=== PATIENT | female | born 1995 | race American Indian/Alaskan Native ===

== ENCOUNTER 2018-09-04 12:16 | Emergency (ER) | payer SELFPAY ==
[2018-09-04 12:16] VITALS: BMI 31.4
[2018-09-04 12:24] VITALS: TEMP 98.5
[2018-09-04] MEDS ORDERED: Sodium Chloride 0.9% 1,000 ML IV STA (13:17)
[2018-09-04] MEDS ORDERED: Sodium Chloride 0.9% 1,000 ML IV ONE (13:19)
[2018-09-04] MEDS ORDERED: Sodium Chloride 0.9% 1,000 ML ONE (13:33)
--- NOTE | 2018-09-04 14:00 | C.PDOC ---
History Of Present Illness 23 y/o female presents to the ED complaining of bilateral temporal headache for the last 2 days. Associated with photophobia, phonophobia, and decreased PO and nausea. Otherwise she denies any vomiting, fevers, chills, neck pain or stiffness. Patient admits to prior hx of migraines but cannot recall what she was treated with in the past. Time Seen by Provider: 09/04/18 12:56 Chief Complaint (Nursing): Headache History Per: Patient History/Exam Limitations: no limitations Onset/Duration Of Symptoms: Days (x 2) Current Symptoms Are (Timing): Still Present Associated Symptoms: Photophobia Past Medical History Reviewed: Historical Data, Nursing Documentation, Vital Signs Vital Signs: Last Vital Signs Temp 98.5 F 09/04/18 12:24 Pulse 83 09/04/18 12:24 Resp 20 09/04/18 12:24 BP 143/86 09/04/18 12:24 Pulse Ox 98 09/04/18 12:24 - Medical History PMH: HTN, Migraine Denies: Depression, Diabetes - [facility] EXTRACTION OF POC, LOW CERVICAL, OPEN APPROACH (04/12/17) Family History: States: No Known Family Hx - Social History Hx Alcohol Use: No Hx Substance Use: No - Immunization History Hx Tetanus Toxoid Vaccination: No Hx Influenza Vaccination: No Hx Pneumococcal Vaccination: No Review Of Systems Constitutional: Negative for: Fever, Chills Eyes: Negative for: Vision Change ENT: Negative for: Nose Congestion Respiratory: Negative for: Cough Gastrointestinal: Positive for: Nausea, Other (Loss of appetite). Negative for: Vomiting, Abdominal Pain, Diarrhea Musculoskeletal: Negative for: Neck Pain Skin: Negative for: Rash Neurological: Positive for: Headache, Other (Photophobia, Phonophobia). Negative for: Weakness, Numbness, Change in Speech Physical Exam - Physical Exam Appears: Non-toxic, No Acute Distress Skin: Normal Color, Warm, Dry Head: Atraumatic, Normacephalic, No Tenderness (to sinuses) Eye(s): bilateral: Normal Inspection, PERRL, EOMI Oral Mucosa: Moist Neck: Normal ROM, No Midline Cervical Tenderness, Supple Chest: Symmetrical Cardiovascular: Rhythm Regular, No Murmur Respiratory: Normal Breath Sounds, No Accessory Muscle Use Gastrointestinal/Abdominal: Soft (but obese), No Tenderness, No Distention Back: Normal Inspection, No CVA Tenderness Extremity: Bilateral: Atraumatic, Normal Color And Temperature, Normal ROM Neurological/Psych: Oriented x3, Normal Speech, Normal Cognition, Normal Cranial Nerves, Other (No focal deficits) Gait: Steady ED Course And Treatment O2 Sat by Pulse Oximetry: 98 Medical Decision Making Medical Decision Making: Impression: Migraine headache Plan: - Urine POC - NS IV fluids - 10 mg IV Reglan - 15 mg IV Toradol - 975 mg PO Tylenol - Reassess Disposition Counseled Patient/Family Regarding: Studies Performed, Diagnosis - Disposition Disposition: HOME/ ROUTINE Disposition Time: 15:46 Condition: STABLE Prescriptions: Ibuprofen [Motrin] 600 mg PO TID #15 tab Metoclopramide HCl [Reglan] 10 mg PO BID #12 tablet Instructions: Migraine Headaches in Adults Forms: [facility] (Ukrainian), General Discharge Instructions, Work Excuse - POA Present On Arrival: None - Clinical Impression Clinical Impression: Headache, Migraine - Scribe Statement The provider has reviewed the documentation as recorded by the Mary Dalton Provider Attestation: All medical record entries made by the Mary were at my direction and personally dictated by me. I have reviewed the chart and agree that the record accurately reflects my personal performance of the history, physical exam, medical decision making, and the department course for this patient. I have also personally directed, reviewed, and agree with the discharge instructions and disposition.
[2018-09-04 14:48] VITALS: BP 121/79; PULSE 65; RESP 18
[2018-09-04 15:50] VITALS: O2SAT 98
== END 2018-09-04 16:07 | disposition home or self-care (01) ==
LOC: C.ER 12:16
DX: G43.909 Migraine, unspecified, not intractable, without status migrainosus (principal)
CPT/HCPCS: 81025; 96361; 96374; 96375; 99284; J1885; J2765; J7030